=== PATIENT | female | born 1980 | race Two or more races ===

== ENCOUNTER 2018-05-19 17:47 | Emergency (ER) | payer MEDICAID ==
[~2018-05-19] VITALS: Ht 152.4 cm; Wt 99.8 kg
[2018-05-19 17:54] VITALS: BP 128/78
[2018-05-19] MEDS ORDERED: oxyCODONE HCL/Acetaminophen 5/325mg PO ONE (18:15)
[2018-05-19] MEDS ORDERED: Tetanus/Diptheria/Pertussis Vaccine 0.5ml Syr IM ONE (18:15)
[2018-05-19] MEDS ORDERED: Neosporin Oint Ud Pkt TOP ONE (18:15)
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
[2018-05-19] MEDS ORDERED: fentaNYL 100 mcg/2 mL IV ONE (19:15)
[2018-05-19 19:16] VITALS: BP 121/73
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
[2018-05-19 20:35] VITALS: BP 101/61
[2018-05-19] MEDS ORDERED: TRAMADOL HCL50 MG ORAL (21:39)
[2018-05-19] MEDS ORDERED: IBUPROFEN600 MG ORAL (21:39)
[2018-05-19] MEDS ORDERED: BACITRACIN15 GM TOPIC (21:39)
[2018-05-19 21:46] VITALS: BP 101/61
== END 2018-05-19 21:46 | disposition home or self-care (01) ==
LOC: EDBD 17:47 → EMR 21:01
DX: S52.124A Nondisplaced fracture of head of right radius, initial encounter for closed fracture (principal); S09.90XA Unspecified injury of head, initial encounter; V43.62XA Car passenger injured in collision with other type car in traffic accident, initial encounter; Y92.410 Unspecified street and highway as the place of occurrence of the external cause; Z23 Encounter for immunization
CPT/HCPCS: 29125; 70450; 70486; 73080; 73090; 90471; 90715; 96374; 99285; J2405; J3010

== ENCOUNTER 2018-06-01 13:54 | Emergency (ER) | payer MEDICAID ==
[~2018-06-01] VITALS: Ht 162.6 cm; Wt 99.8 kg
[~2018-06-01 13:54] MED LIST: BACITRACIN15 GM TOPIC; IBUPROFEN600 MG ORAL; TRAMADOL HCL50 MG ORAL
--- NOTE | 2018-06-01 15:16 | Diagnostic Imaging Report ---
Indication: Pain Technique: XRAY Elbow Min 3v R Comparison: 05/19/2018 FINDINGS/IMPRESSION: A minimally displaced fracture of the radial head is again noted. This is unchanged. No new definite/displaced acute fractures identified. The previously seen elbow joint effusion is decreased compared to the prior exam. No radiopaque foreign body identified.
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
[2018-06-01 16:45] VITALS: BP 110/71
[2018-06-01 16:46] VITALS: BP 110/71
== END 2018-06-01 16:46 | disposition home or self-care (01) ==
LOC: EMR 15:14
DX: Z46.89 Encounter for fitting and adjustment of other specified devices (principal)
CPT/HCPCS: 29105; 99283